=== PATIENT | male | born 1960 | race Caucasian/White ===

== ENCOUNTER 2024-01-20 10:56 | Emergency (ER) | payer OTHER, SELFPAY ==
[2024-01-20 11:02] VITALS: BP 131/90; PULSE 98; TEMP 36.8; O2SAT 99; BMI 41.9
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
--- NOTE | 2024-01-20 11:32 | CT_ITS ---
The [address] [address] Patient Name: FLOR HOU MRN: [id number] date: 1960 Sex: M Assigned Patient Location: ER Current Patient Location: ER Accession/Order Number: [id number] Exam Date: 01/20/2024 12:00 Report Date: 01/20/2024 12:36 At the request of: ANDREW MARTINEZ Procedure: CT head/brain wo con EXAM: CT head/brain wo con CLINICAL INDICATION: headache COMPARISON: CT head 08/19/2017. TECHNIQUE: Axial CT images of the brain were obtained without contrast. Coronal and sagittal reformats were obtained. Dose reduction techniques were achieved by using automated exposure control and/or adjustment of mA and/or kV according to patient size and/or use of iterative reconstruction technique. FINDINGS: No intracranial hemorrhage, extra-axial fluid collection, hydrocephalus, midline shift, or acute large vessel territory infarction. No other mass effect. Patchy periventricular and subcortical hypoattenuation is likely on the basis of chronic microvascular angiopathic changes. Mild symmetric global volume loss without lobar predominance. Slight commensurate prominence of the ventricular system. Basal cisterns are patent. Stable right temporal craniotomy changes with resection cavity and encephalomalacia/gliosis in the anterior temporal lobe. Dense scattered vascular calcifications throughout the prominent vertebrobasilar arteries. No calvarial fracture. Normal soft tissues. Mild scattered paranasal sinus mucosal thickening. Mastoid air cells are well-aerated. CT/CT head/brain wo con IMPRESSION: No acute intracranial process. Electronically authenticated by: SWEETIE ESPARZA Date: 01/20/2024 12:36
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
[2024-01-20 11:58] LABS: Basophils Absolute Auto 0.1 10^3/uL (0.0-0.1); Basophils Percent Auto 0.7 % (0.2-2.0); Eosinophils Absolute Auto 0.1 10^3/uL (0.0-0.7); Eosinophils Percent Auto 1.8 % (0.9-7.0); Hemoglobin 15.7 g/dL (14.0-18.0); Immature Granulocytes Abs Auto 0.02 10^3/uL (0.00-0.03); Immature Granulocytes Pct Auto 0.3 % (0.0-0.5); Mean Corpuscular HGB Conc 32.7 g/dL (29.9-35.2); Mean Corpuscular Hemoglobin 26.9 pg (25.9-34.0); Mean Corpuscular Volume 82.3 fL (80.0-94.0); Mean Platelet Volume 10.7 fL (9.5-13.5); Monocytes Absolute Auto 0.7 10^3/uL (0.3-0.8); Monocytes Percent Auto 9.5 % (1.7-12.0); Neutrophils Absolute Auto 5.4 10^3/uL (1.4-6.5); Neutrophils Percent Auto 73.7 % (43.0-75.0); Platelet Count 73 10^3/uL (150-450); Red Blood Count 5.83 10^6/uL (4.70-6.10); Red Cell Distribution Width 17.3 % (11.0-15.0); White Blood Count 7.4 10^3/uL (4.0-11.0)
[2024-01-20 12:07] LABS: Alanine Aminotransferase 51 U/L (16-63); Albumin Globulin Ratio 0.8; Albumin Level 3.3 g/dL (3.4-5.0); Alkaline Phosphatase 152 U/L (46-116); Anion Gap 15.8; Aspartate Amino Transferase 43 U/L (15-37); Bilirubin Total 1.4 mg/dL (0.2-1.0); Calcium 9.3 mg/dL (8.5-10.1); Carbon Dioxide 23.8 mmol/L (21.0-32.0); Chloride 98 mmol/L (98-107); Estimated GFR (African America >60 (>=60); Estimated GFR (Non-African Ame 57 (>=60); Globulin 4.1 g/dL; Glucose 135 mg/dL (74-106); Potassium 3.6 mmol/L (3.5-5.1); Sodium 134 mmol/L (136-145); Total Protein 7.4 g/dL (6.4-8.2)
[2024-01-20] MEDS: ACETAMINOPHEN 325 MG TABLET 650 MG PO (13:31)
== END 2024-01-20 13:41 | disposition home or self-care (01) ==
PROVIDERS: Emergency Provider Emergency Medicine; PCP Internal Medicine
DX: S80.819A Abrasion, unspecified lower leg, initial encounter (principal); M54.2 Cervicalgia; Z79.899 Other long term (current) drug therapy; Z79.4 Long term (current) use of insulin; V49.9XXA Car occupant (driver) (passenger) injured in unspecified traffic accident, initial encounter
CPT/HCPCS: 36415; 70450; 72125; 72131; 80053; 85025; 99284